=== PATIENT | male | born 1995 | race African-American/Black ===

== ENCOUNTER 2024-06-13 00:47 | Inpatient (IN) | payer OTHER ==
[~2024-06-13] VITALS: Ht 188 cm; Wt 100.7 kg
[2024-06-13 01:22] VITALS: PULSE 82; RESP 16; O2SAT 96
[2024-06-13] MEDS: NITROGLYCERIN 2% OINT 1GM PKG TD ONE (01:29)
[2024-06-13 01:33] LABS: Basophils # (auto) 0 10 ^3/uL (0-0.2); Basophils % (auto) 0.7 % (0.0-2.0); Mean Corpuscular Volume 79.7 fL (80.0-100.0); Monocytes # (auto) 0.6 10 ^3/uL (0-1.3); White Blood Cell 6.3 10^3/uL (4.4-10.8)
[2024-06-13 01:35] LABS: Eosinophils # (auto) 0.2 10 ^3/uL (0-0.8); Eosinophils % (auto) 3.5 % (0.0-7.0); Hematocrit 41.6 % (41.0-53.0); Hemoglobin 13.8 g/dL (13.5-17.5); Lymphocytes # (auto) 2.7 10 ^3/uL (0.4-5.4); Lymphocytes % (auto) 42.7 % (10.0-50.0); Mean Corpuscular Hemoglobin 26.4 pg (28.0-32.0); Mean Corpuscular Hgb Conc. 33.1 g/dL (32.0-36.0); Monocytes % (auto) 9.2 % (0.0-12.0); Neutrophils # (auto) 2.8 10 ^3/uL (1.6-8.6); Neutrophils % (auto) 43.9 % (37.0-80.0); Nucleated Red Blood Cells % 0.1 %; Platelet Count (auto) 240 10^3/uL (140-450); Red Blood Cells 5.22 10^6/uL (4.5-5.90); Red Cell Distribution Width 14.1 % (11.8-14.3)
[2024-06-13 01:52] LABS: Alanine Aminotransferase 46 U/L (7-40); Albumin 4.5 g/dL (3.2-4.8); Alkaline Phosphatase 69 U/L (46-116); Anion Gap 6 (5-15); Aspartate Aminotransferase 22 U/L (13-40); BUN/Creatinine Ratio 6.7 (10.0-20.0); Blood Urea Nitrogen 7 mg/dL (9-23); Calcium 9.1 mg/dL (8.7-10.4); Carbon Dioxide 28 mmol/L (20-30); Chloride 108 mmol/L (98-107); Glucose 118 mg/dL (74-106); Potassium 3.3 mmol/L (3.5-5.1); Sodium 142 mmol/L (136-145); Total Protein 7.5 g/dL (5.7-8.2)
[2024-06-13] MEDS: cloNIDine HCL 0.1 MG TAB PO ONE (04:42)
[2024-06-13 07:30] VITALS: PULSE 84; RESP 12; O2SAT 99
[2024-06-13] MEDS ORDERED: ACETAMINOPHEN 325 MG TAB PO PRN (10:45)
[2024-06-13] MEDS ORDERED: NITROGLYCERIN 0.4 MG SL TAB SL PRN ×2 (10:45)
[2024-06-13] MEDS ORDERED: ONDANSETRON HCL 4 MG/2 ML VIAL IV PRN (10:45)
[2024-06-13 11:52] LABS: INR 1.07 (0.9-1.15); Prothrombin Time 11.3 sec (9.3-11.8)
[2024-06-13] MEDS: SODIUM CHLORIDE 0.9% 1,000 ML IV SCH (12:00)
[2024-06-13 12:02] LABS: Magnesium 2.1 mg/dL (1.6-2.6)
[2024-06-13 12:03] LABS: Phosphorus 4.1 mg/dL (2.4-5.1)
[2024-06-13] MEDS: POTASSIUM EFFERVESENT TAB 25 MEQ PO ONE (12:17)
[2024-06-13] MEDS: ENOXAPARIN SOD 100 MG/1 ML SYRINGE SC SCH (12:22)
[2024-06-13 12:59] LABS: LDL Cholesterol 77 mg/dL (< 100); Triglycerides 55 mg/dL (< 150)
[2024-06-13 13:01] LABS: Cholesterol 113 mg/dL (< 200); HDL Cholesterol 26 mg/dL (40-59)
[2024-06-13] MEDS ORDERED: hydrALAZINE HCL 20 MG/ML VL IV PRN (14:00)
[2024-06-13 20:00] VITALS: PULSE 84; RESP 12; O2SAT 99
[2024-06-13] MEDS ORDERED: ATORVASTATIN 20 MG TAB PO SCH (22:00)
[2024-06-13] MEDS ORDERED: METOPROLOL TARTRATE 25 MG TAB PO SCH (22:00)
[2024-06-14] VITALS (8 sets, daily range): BP systolic 134–149; BP diastolic 79–90; PULSE 70–79; RESP 16–18; TEMP 98–98.5; O2SAT 98–100
[2024-06-14 04:30] LABS: Alanine Aminotransferase 34 U/L (7-40); Alkaline Phosphatase 63 U/L (46-116); Anion Gap 2 (5-15); Aspartate Aminotransferase 17 U/L (13-40); Bilirubin, Total 0.8 mg/dL (0.2-1.0); Blood Urea Nitrogen 9 mg/dL (9-23); Carbon Dioxide 29 mmol/L (20-30); Chloride 109 mmol/L (98-107); Glucose 111 mg/dL (74-106); Potassium 4.2 mmol/L (3.5-5.1); Sodium 140 mmol/L (136-145); Total Protein 6.8 g/dL (5.7-8.2)
[2024-06-14 04:31] LABS: Mean Corpuscular Hemoglobin 26.2 pg (28.0-32.0); Mean Corpuscular Hgb Conc. 32.5 g/dL (32.0-36.0); Platelet Count (auto) 226 10^3/uL (140-450); White Blood Cell 4.7 10^3/uL (4.4-10.8)
[2024-06-14 04:35] LABS: Hematocrit 40.6 % (41.0-53.0); Hemoglobin 13.2 g/dL (13.5-17.5); Mean Corpuscular Volume 80.7 fL (80.0-100.0); Red Blood Cells 5.03 10^6/uL (4.5-5.90); Red Cell Distribution Width 13.7 % (11.8-14.3)
[2024-06-14 04:48] LABS: Band Neutrophils % (manual) 0; Basophils % (manual) 0 (0.0-2.0); Blast Cells 0; Metamyelocytes % 0; Myelocytes % 0; Promyelocytes % 0; Reactive Lymphocytes 0
[2024-06-14 04:53] LABS: Triglycerides 108 mg/dL (< 150)
[2024-06-14 04:54] LABS: LDL Cholesterol 74 mg/dL (< 100)
[2024-06-14 04:55] LABS: Cholesterol 111 mg/dL (< 200); HDL Cholesterol 22 mg/dL (40-59)
[2024-06-14] MEDS ORDERED: HYDR25TA4 PO (05:42)
[2024-06-14] MEDS ORDERED: LOSA-533 PO (05:42)
[2024-06-14 08:29] LABS: Eosinophils % (manual) 3 (0-7); Lymphocytes % (manual) 51 (10.0-50.0); Monocytes % (manual) 4 (0-12); Platelet Estimate Adequate
[2024-06-14] MEDS: DOCUSATE SOD 100 MG CAP PO SCH (09:51)
[2024-06-14] MEDS: hydroCHLOROthiazide 25 MG TAB PO SCH (09:52)
[2024-06-14] MEDS: LOSARTAN POTASSIUM 25 MG TAB PO SCH (09:52)
[2024-06-14] MEDS ORDERED: ASPirin 81 mg TAB PO SCH (10:00)
[2024-06-15 00:52] VITALS: BP 141/68; PULSE 68; RESP 19; TEMP 98.3; O2SAT 99
[2024-06-15 05:00] VITALS: BP 105/72; PULSE 97; RESP 18; TEMP 97.9; O2SAT 98
[2024-06-15 08:00] VITALS: PULSE 65; RESP 17
[2024-06-15 09:29] VITALS: BP 128/72; PULSE 74; RESP 15; TEMP 98.1; O2SAT 100
[2024-06-15 10:53] LABS: Hepatitis B Surface Antigen Negative (Negative)
[2024-06-15 11:16] LABS: Hepatitis C Antibody Negative (Negative)
[2024-06-15 13:09] VITALS: BP 128/72; PULSE 75; RESP 17; TEMP 36.7; O2SAT 99
[2024-06-15 13:27] VITALS: BP 137/80; PULSE 69; RESP 15; TEMP 98.1; O2SAT 99
== END 2024-06-15 14:25 | disposition home or self-care (01) | DRG 922 ==
LOC: ER 00:47 → TELE 10:38 → TELE-E-ADS 06-14 04:50
PROVIDERS: ADMIT Nurse Practitioner Family; ATTEND Family Medicine
DX: T67.5XXA Heat exhaustion, unspecified, initial encounter (principal); I21.A1 Myocardial infarction type 2; I16.1 Hypertensive emergency; M62.82 Rhabdomyolysis; E66.9 Obesity, unspecified; E86.0 Dehydration; E87.6 Hypokalemia; G47.33 Obstructive sleep apnea (adult) (pediatric); I10 Essential (primary) hypertension; R73.03 Prediabetes; X30.XXXA Exposure to excessive natural heat, initial encounter; Y93.89 Activity, other specified; Y92.89 Other specified places as the place of occurrence of the external cause; Y99.8 Other external cause status; Z68.28 Body mass index [BMI] 28.0-28.9, adult
CPT/HCPCS: 36415; 71045; 80053; 80061; 82550; 83036; 83735; 84100; 84443; 84484; 85007; 85025; 85027; 85379; 85610; 86803; 87340; 93005; 93306; 96372; 99291; G0378